=== PATIENT | female | born 1990 | race Caucasian/White ===

== ENCOUNTER 2019-07-14 00:28 | Outpatient (CLI) | payer MEDICAID, SELFPAY ==
--- NOTE | 2019-07-14 11:02 | DI.US_ITS ---
EXAM: US OB 2-3 TRIMESTER CLINICAL HISTORY: SUPERVISION NORMAL 2ND TRIMESTER, Z34.82 TECHNIQUE: Ultrasound performed using standard protocol. COMPARISON: No exams were available for comparison FINDINGS: The fetus is in variable position. The placenta is anterior. The biometric measurements correspond to 20 weeks 0 days. No abnormalities are identified. The amniotic fluid appears visually nor mal. IMPRESSION: survey is within normal limits.
== END 2019-07-14 00:48 ==
PROVIDERS: PCP Family Medicine; Visit Provider Midwife
DX: Z34.92 Encounter for supervision of normal pregnancy, unspecified, second trimester (principal); Z3A.20 20 weeks gestation of pregnancy
CPT/HCPCS: 76805

== ENCOUNTER 2019-07-14 11:00 | Outpatient (CLI) | payer MEDICAID, SELFPAY ==
[2019-07-14 11:46] LABS: Abs Immature Grans 0.02 k/cumm (0.0-0.09); Absolute Basophil Count 0.03 k/cumm (0.0-0.2); Absolute Eosinophil Count 0.19 k/cumm (0.0-0.7); Absolute Lymphocyte Count 2.24 k/cumm (1.2-3.4); Absolute Monocyte Count 0.73 k/cumm (0.11-0.7); Absolute Neutrophil Count 6.22 k/cumm (1.2-6.7); Basophils % 0.3; HCT 39.3 % (36.0-46.0); HGB 13.6 g/dL (12.0-15.5); Immature Grans % 0.2; Lymphocytes % 23.8; Mean Corp. HGB Concentration 34.6 g/dL (32.0-36.0); Mean Corpuscular Hemoglobin 30.9 pg (27.0-33.0); Mean Corpuscular Volume 89.3 fL (80-95); Mean Platelet Volume 9.5 fL (8.0-11.0); Monocytes % 7.7; Platelet Count 281 x1000/uL (130-400); RBC Distribution Width 12.5 % (11.7-14.6); White Blood Cell Count 9.43 k/cumm (4.4-10.8)
[2019-07-14 12:36] LABS: TSH (W/Ref FT4) 1.56 uIU/mL (0.36-3.74)
[2019-07-15 10:32] LABS: Hepatitis C Ab w Rflx HCV PCR Negative (Negative)
[2019-07-15 10:33] LABS: Varicella IgG Antibody Positive (See Note)
[2019-07-15 10:57] LABS: Rubella IgG Ab (UVM) Positive (See Note)
[2019-07-15 10:59] LABS: Hepatitis B Surface Ag Negative (Negative)
[2019-07-15 11:07] LABS: Syphilis Serology (RPR) Negative (Negative)
[2019-07-15 11:37] LABS: HIV-1/2 Ag & Ab Screen Negative (Negative)
[2019-07-15 18:16] LABS: Vitamin D 25 Total 23.8 ng/ml (30-100)
== END 2019-07-14 11:20 ==
PROVIDERS: PCP Family Medicine; Visit Provider Midwife
DX: Z34.82 Encounter for supervision of other normal pregnancy, second trimester (principal)
CPT/HCPCS: 36415; 80055; 82306; 86787; 86803; 86850; 86900; 86901; 87340; 87389; 84443; 86592; 86762

== ENCOUNTER 2024-08-05 02:44 | Outpatient (CLI) | payer MEDICAID, SELFPAY ==
--- NOTE | 2024-08-05 | DI.US_ITS ---
Exam(s) US OB 1ST TRIMESTER EXAM: US OB 1ST TRIMESTER CLINICAL HISTORY: Early Dating US at 12 weeks gestation, fax [phone]. COMPARISON: US US OB 2-3 TRIMESTER from 07/14/2019 TECHNIQUE: Transabdominal Transvaginal first trimester obstetrical ultrasound performed. FINDINGS: There is a single living intrauterine gestation of estimated sonographic age of 12 weeks 6 days based on a crown-rump length. movement was noted during the examination. The heart rate is 1 52 beats per minute. Pelvic Measurments Uterus: 14.7 long by 6.9 AP by 10.8 transverse cm Rt Ovary: 4.6 x 4.3 x 3.7 cm Lt Ovary: 1.8 x 1.9 x 2.1 cm Heart Rate: 152BPM IMPRESSION: There is a single living intrauterine gestation of estimated sonographic age 12 weeks 6 days. DATA REPOSITORY:
== END 2024-08-05 03:04 ==
LOC: DI 02:45
PROVIDERS: PCP Family Medicine; Visit Provider Midwife
DX: Z34.01 Encounter for supervision of normal first pregnancy, first trimester (principal); Z3A.12 12 weeks gestation of pregnancy
CPT/HCPCS: 76801